=== PATIENT | female | born 1965 | race Caucasian/White ===

== ENCOUNTER 2024-01-28 11:03 | Emergency (ER) | payer SELFPAY ==
[2024-01-28] VITALS (9 sets, daily range): BP systolic 106–148; BP diastolic 58–89; PULSE 71–116; RESP 17–19; TEMP 36.3; O2SAT 97–100
--- NOTE | ~2024-01-28 | CT_ITS ---
EXAMINATION: CT abdomen pelvis w con DATE: 01/28/2024 12:23 INDICATION: Right lower quadrant abdominal pain TECHNIQUE: Computed tomography (CT) of the abdomen and pelvis was performed without intravenous contr ast. Automated exposure control and iterative reconstruction technique were employed. The dose-length product was 1548.33 mGy-cm. COMPARISON: 11/18/2013 FINDINGS: Scattered discoid atelectasis/scarring in the right middle and bilateral lower lobes. Within the rubina on of scarring in the left lower lobe is a relatively thin-walled cavitary lesion which appears to co mmunicate with multiple bronchi, likely sequela of chronic infection. Heart size is normal. No perica rdial or pleural effusion. Very small sliding-type hiatal hernia. Liver, gallbladder, spleen, pancrea s and bilateral adrenal glands are normal. Subcentimeter right renal cyst. There is cortical scarring at both kidneys, mild on the right and moderate on the left. Bladder and anteverted uterus are sanjay l. There is a complex cystic mass which fills the pelvis and significant portion of the lower abdomen which measures 25.8 cm craniocaudally and 15.3 x 24.2 cm in maximal orthogonal dimensions. There are multiple internal thin and thick enhancing septations as well as a few enhancing peripheral nodular soft tissue components which extends to both the left and right adnexa suspicious for ovarian neoplas m particularly cystadenocarcinoma. The left gonadal vein appears enlarged relative the right suggesti ng a left ovarian origin. Small bowel obstruction with multiple mildly dilated loops of small bowel measuring up to 4 cm kasey l diameter primarily in the left abdomen. There is a pseudo feces sign immediately proximal to the tr ansition point which is seen in the posterior mid abdomen situated between the aorta and the cephalad margin of the lesion noted large cystic mass. The more distal small bowel and colon are decompressed . Normal appendix. There is a small amount of ascites scattered throughout the abdomen. No abscess or free intraperitoneal gas. No pathologically enlarged abdominal or pelvic lymphadenopathy. Surgical s car along the midline anterior abdominal wall. Mild lumbar spondylosis with chronic 5 mm anterolisthe sis L4 on L5 and severe associated bilateral facet osteoarthritis at this level. Bone island at the l eft femoral head. IMPRESSION: 1. Small bowel obstruction with transition point in the posterior mid abdomen potentially related to an adhesion with postoperative changes along the midline abdominal wall. 2. 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 This appears to contact b oth ovaries however would favor left ovarian origin given the asymmetric relative enlargement of the left gonadal vein and compared with the right. 3. Small amount of likely reactive ascites. 4. Thin-walled cavitary lesion in the left lower lobe along multiple planes of chronic discoid atelec tasis/scarring which appears to indicate a few locations with central bronchi likely sequela of chron ic infection. Reviewed, dictated and finalized at location [facility]. IMPRESSION: 1. Small bowel obstruction with transition point in the posterior mid abdomen p otentially related to an adhesion with postoperative changes along the midline abdominal wall. 2. 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 This
[2024-01-28 11:41] LABS: Hematocrit 49.6 % (37.0-47.0); Hemoglobin 16.5 g/dL (12.0-15.0); Mean Corpuscular HGB Conc 33.3 g/dl (32-36); Mean Corpuscular Hemoglobin 29.6 pg (26-34); Mean Corpuscular Volume 88.9 fl (80-100); Mean Platelet Volume 9.5 fl (7.4-10.4); Platelet Count Result 254 k/mm3 (150-375); Red Blood Count 5.58 M/mm3 (4.2-5.4); Red Cell Distribution Width 13.2 % (11.5-14.5); White Blood Count 13.6 K/mm3 (4.5-10.0)
[2024-01-28 11:54] LABS: Alanine Aminotransferase 19 U/L (6-35); Albumin Level 4.7 g/dL (3.5-5.1); Alkaline Phosphatase 58 U/L (38-126); Anion Gap 13 mmol/L (4-12); Aspartate Amino Transferase 25 U/L (14-36); Bilirubin,Total 1.1 mg/dL (0.2-1.3); Blood Urea Nitrogen 15 mg/dL (7-17); Calcium 9.5 mg/dL (8.4-10.2); Carbon Dioxide 23 mmol/L (22-30); Chloride 100 mmol/L (98-107); Estimated CRCL calculation 71 ml/min; Estimated Glomerular Filt Rate 57; Glucose 141 mg/dL (65-110); Lipase 90 U/L (23-300); Potassium 3.8 mmol/L (3.4-5.0); Sodium 136 mmol/L (137-145)
[2024-01-28 12:11] LABS: Band Neutrophils Percent 17 % (0-6); Lymphocytes Absolute Manual 1.08 K/mm3 (1.1-4.5); Lymphocytes Percent Manual 8 % (18-44); Monocytes Absolute Manual 0.81 K/mm3 (0.1-0.90); Monocytes Percent Manual 6 % (3-9); Neutrophils Absolute Manual 11.69 K/mm3 (1.7-7.2); Neutrophils Percent Manual 69 % (46-73); Platelet Estimate Adequate (Adequate); Total Cells Counted 100
[2024-01-28 12:12] LABS: Schistocytes None Seen
[2024-01-28] MEDS: SODIUM CHLORIDE 0.9% IV 1,000 ML 999 ML IV CONT (12:33)
--- NOTE | 2024-01-28 13:12 | ED.GENADULT ---
HPI - General Adult General Chief complaint: Abdominal Pain Stated complaint: RLQ pain Time Seen by Provider: 01/28/24 12:01 History of Present Illness HPI narrative: 58-year-old female presented to the emergency department for evaluation for worsening right lower quadrant pain and no bowel movement over the last 3 days. Patient states that she has not passed flatus in the some time. Patient does have a prior history of a hemicolectomy due to a mass in 2002, this was done at [place]. Patient has no prior history small-bowel obstruction. Related Data Allergies Allergy/AdvReac Type Severity Reaction Status Date / Time No Known Allergies Allergy Unverified 11/18/13 12:25 Review of Systems Review of Systems: All systems reviewed & are unremarkable except as noted in HPI and below Exam Narrative: APPEARANCE: Uncomfortable appearing HEAD: normocephalic, atraumatic. EYES: PERRLA/EOMI, conjunctivae clear. NOSE: Normal no drainage EARS:TMS clear with good light reflex. THROAT: Pharynx clear, no exudate. NECK: Supple. No adenopathy, no masses. RESPIRATORY: Airway patent, respirations nonlabored. Clear to auscultation bilaterally, no rales, rhonchi, wheezing. CARDIOVASCULAR: Regular rate and rhythm without murmurs rubs or gallops. ABDOMINAL: Distended abdomen, decreased bowel sounds MUSCULOSKELETAL: Moves all extremities. Strength/ROM intact, No edema, No calf tenderness. NEURO: Alert. Cranial nerves II through XII intact. SKIN: Warm, dry. Normal Color Course Course Emergency Course: patient was transferred to [facility] Vital Signs Vital signs: Vital Signs Temperature 97.4 F L 01/28/24 11:10 Pulse Rate 116 H 01/28/24 11:10 Respiratory Rate 18 01/28/24 11:10 Blood Pressure 140/89 01/28/24 11:10 Pulse Oximetry 99 01/28/24 11:10 Temperature 97.4 F L 01/28/24 11:10 Pulse Rate 71 01/28/24 18:14 Respiratory Rate 18 01/28/24 18:14 Blood Pressure 129/77 01/28/24 18:14 Pulse Oximetry 100 01/28/24 18:14 Medical Decision Making [facility] Narrative Medical decision making narrative: 58-year-old female presenting to the emergency department for evaluation for nausea vomiting and lack of bowel movement for the last [address] scan does show evidence of a small-bowel obstruction but also shows a large pelvic mass. I discussed the case with our general surgery and they were willing to take care of the small bowel obstruction. I discussed the case with our OB Gyne regarding the pelvic mass and they felt the patient needed to be transferred to tertiary care center that had gynecology Oncology Services. Patient is not established at its [facility] or at [place]. Patient was in different the transfer locations so I started with [facility]. Discussed the case with Dr. Rosas and patien was accepted by Dr Schneider to [facility]. Differential Diagnosis Differential Diagnosis: colitis, diverticulitis, small-bowel obstruction, appendicitis Vital Signs Vital Signs: Vital Signs Temperature 97.4 F L 01/28/24 11:10 Pulse Rate 116 H 01/28/24 11:10 Respiratory Rate 18 01/28/24 11:10 Blood Pressure 140/89 01/28/24 11:10 Pulse Oximetry 99 01/28/24 11:10 Temperature 97.4 F L 01/28/24 11:10 Pulse Rate 71 01/28/24 18:14 Respiratory Rate 18 01/28/24 18:14 Blood Pressure 129/77 01/28/24 18:14 Pulse Oximetry 100 01/28/24 18:14 Lab Data Lab results reviewed: Yes I reviewed the patient's lab results. 01/28/24 11:32 01/28/24 11:32 Labs: Lab Results 01/28/24 01/28/24 Range/Units 11:32 14:06 WBC 13.6 H (4.5-10.0) K/mm3 RBC 5.58 H (4.2-5.4) M/mm3 Hgb 16.5 H (12.0-15.0) g/dL Hct 49.6 H (37.0-47.0) % MCV 88.9 (80-100) fl MCH 29.6 (26-34) pg MCHC 33.3 (32-36) g/dl RDW 13.2 (11.5-14.5) % Plt Count 254 (150-375) k/mm3 MPV 9.5 (7.4-10.4) fl Immature Gran % (Auto) Not Reportable Neut % (Au
[2024-01-28] MEDS: HYDROmorphone HCL INJ (*CRX) 1 MG/ML SYR 0.5 MG IV PUSH ×3 (13:21→19:44)
[2024-01-28] MEDS: ONDANSETRON INJ 4 MG/2 ML VIAL IV PUSH ×3 (13:21→19:44)
[2024-01-28 14:18] LABS: Add Urine Microscopic? YES; Appearance Urine Cloudy (Clear); Bacteria Urine None Seen /hpf; Bilirubin Urine Negative (Negative); Blood Urine Negative (Negative); Color Urine Yellow (Yellow); Glucose Urine UA Negative (Negative); Ketones Urine 2+ mg/dL (Negative); Leukocyte Esterase Ur Negative LEU/UL (Negative); Nitrate Urine Negative (Negative); Non Pathogenic Casts 0-2; Protein Urine Negative (Negative); RBC Urine 0-2 /hpf (0-2); Specific Grav Ur 1.029 (1.001-1.035); Squamous Epithelial Cell Urine Occasional /hpf (Few); Urobilinogen Urine 0.2 mg/dL (<2.0); WBC Urine 0-5 /hpf (0-3); pH Urine 5.5 (5.0-9.0)
[2024-01-28] MEDS: SODIUM CHLORIDE 0.9% IV 1,000 ML 125 ML IV CONT (15:29)
== END 2024-01-28 19:58 | disposition short-term general hospital (02) ==
PROVIDERS: Family Medicine; Emergency Provider Emergency Medicine; PCP Physician Assistant
DX: K56.609 Unspecified intestinal obstruction, unspecified as to partial versus complete obstruction (principal); N83.202 Unspecified ovarian cyst, left side; N83.201 Unspecified ovarian cyst, right side
CPT/HCPCS: 36415; 74177; 80053; 81001; 83690; 85025; 96361; 96374; 96375; 96376; 99285; J1171; J2405; J7030; Q9967